=== PATIENT | female | born 2000 | race Caucasian/White ===

== ENCOUNTER 2021-12-07 12:01 | Emergency (ER) | payer OTHER, SELFPAY ==
[2021-12-07 12:05] VITALS: BP 145/89; PULSE 100; RESP 18; TEMP 36.5; O2SAT 98
--- NOTE | 2021-12-07 12:06 | ED.URI ---
HPI - URI/Sore Throat General Chief Complaint: Upper Respiratory Infection Stated Complaint: VOMITING, SORE THROAT, HEADACHE Time Seen by Provider: 12/07/21 12:04 Source: patient and RN notes reviewed Mode of arrival: ambulatory Limitations: no limitations History of Present Illness HPI Narrative: patient states that she has been having some sinus pain and feels like her eyes are popping out of her head. She actually went to another facility where she told them that she was vomiting when actually she has hacking up the drainage in the back of her throat. They diagnosed her with vomiting. They tested her for COVID and strep both were negative. She comes in today because she is no better since when she left there were 530 this morning. She denies any nausea. She denies any headache other than the sinus pain. No diarrhea. MD elicited complaint: nasal congestion and sinus pain Onset (ago): day(s) (1) Consistency: constant Severity: moderate Description of mucous: clear ( Sinus drainage) Able to tolerate fluids by mouth: Yes Exacerbating factors: nothing Relieving factors: nothing Associated symptoms: denies other symptoms Treatments prior to arrival: none Related Data Home Medications Medication Instructions Recorded Confirmed No Home Medications 12/07/21 12/07/21 Allergies Allergy/AdvReac Type Severity Reaction Status Date / Time No Known Allergies Allergy Verified 12/07/21 12:15 Review of Systems Review of Systems: All systems reviewed & are unremarkable except as noted in HPI and below PMFSH Past Medical History Medical History (Updated 12/07/21 @ 12:27 by Billy Emmanuel MD) No active medical problems Surgical History Surgical History (Updated 12/07/21 @ 12:22 by Billy Emmanuel MD) No pertinent past surgical history Exam Const: General: healthy appearing, no acute distress and alert Nutritional Appearance: well nourished Orientation/consciousness: patient oriented x3 Limitations: no limitations Other: Female nurse in room during examination. HENMT: Head: normal to inspection Ears: external ears normal and TM's normal bilaterally General nose exam: Normal external nose present and Normal nares present Face and sinus: normal facial exam Mouth: Yes Normal oral and palatal mucosa present and Yes moist mucous membranes Throat: posterior oropharynx normal and uvula midline Eyes: Conjunctivae: conjunctivae normal Pupils: Equal, round and reactive pupils present EOM: EOMs intact bilaterally Neck: Neck: normal visual inspection and no lymphadenopathy Resp: Effort & Inspection: normal respiratory effort Auscultation: clear to auscultation bilaterally Cardio: Rate: regular rate Rhythm: regular rhythm GI: GI Palp: Yes Soft to palpation and No Tenderness to palpation present (GI) Auscultation: normal bowel sounds Back/Spine/Pelvis: Cervical Spine: cervical ROM normal Thoracic/Lumbar Spine: thoraco-lumbar ROM normal Skin: General skin exam: normal color Rashes: no rashes Neuro: General: patient oriented x3, moves all extremities, no focal motor deficits and CN's II-XI intact bilaterally Speech: normal speech Gait exam (Neuro): Normal gait present Extrem: General: normal to inspection and no clubbing, cyanosis or edema Psych: Mental Status: mental status grossly normal Affect: normal affect Attitude: cooperative Course Course Emergency Course: long discussion with the patient with a viral syndrome no antibiotics would be warranted at this time. She has not tried anything [id number] to treat her symptoms. I recommend that she try decongestant [id number] and possibly some Flonase nasal spray or Afrin nasal spray. She is advised limit Afrin nasal spray to 1 puff each nostril twice daily and for 3 days only. She is to follow up with her primary care physician if her symptoms are not resolved in the next 10-14 days. Vital Signs Vital signs: Vital Signs Temperatur
== END 2021-12-07 12:35 | disposition home or self-care (01) ==
LOC: CHSED 12:27
PROVIDERS: Emergency Provider Emergency Medicine
DX: J06.9 Acute upper respiratory infection, unspecified (principal)
CPT/HCPCS: 99281